=== PATIENT | female | born 1975 | race Caucasian/White ===

== ENCOUNTER 2025-05-06 17:48 | Emergency (ER) | payer OTHER, SELFPAY ==
[2025-05-06 18:16] VITALS: BP 126/80; PULSE 96; RESP 17; TEMP 36.2; O2SAT 98; BMI 30.2
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
[2025-05-06 19:52] VITALS: BP 129/66; PULSE 83; RESP 18; O2SAT 100
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
[2025-05-06] MEDS: NAPROXEN 250 MG TABLET 500 MG PO (20:12)
== END 2025-05-06 20:15 | disposition home or self-care (01) ==
PROVIDERS: Emergency Provider Student in an Organized Health Care Education/Training Program
DX: M54.50 Low back pain, unspecified (principal); M54.6 Pain in thoracic spine; V43.52XA Car driver injured in collision with other type car in traffic accident, initial encounter; Y92.410 Unspecified street and highway as the place of occurrence of the external cause
CPT/HCPCS: 72128; 72131; 99283; 99284

== ENCOUNTER 2025-05-09 20:06 | Emergency (ER) | payer OTHER, SELFPAY ==
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
[2025-05-09 20:30] VITALS: BP 138/81; PULSE 73; RESP 16; TEMP 37; O2SAT 98; BMI 29.0
== END 2025-05-09 21:44 | disposition home or self-care (01) ==
PROVIDERS: Emergency Provider Family Medicine
DX: S09.90XA Unspecified injury of head, initial encounter (principal); R51.9 Headache, unspecified; R42 Dizziness and giddiness; H53.8 Other visual disturbances; V43.92XA Unspecified car occupant injured in collision with other type car in traffic accident, initial encounter; Y92.410 Unspecified street and highway as the place of occurrence of the external cause
CPT/HCPCS: 70450; 99281; 99284